=== PATIENT | female | born 1985 ===

== ENCOUNTER 2017-09-01 22:25 | Emergency (ER) | payer MEDICAID ==
[2017-09-01 22:42] VITALS: RESP 14; TEMP 97.3; O2SAT 99
--- NOTE | 2017-09-01 23:07 | C.PDOC ---
History Of Present Illness 32 year old female presents to the ER with a complaint of upper lip swelling and a rash to the bilateral arms that began 2 hours ago [place] being [place] the park. Denies difficulty breathing or difficulty swallowing. Time Seen by Provider: 09/01/17 22:45 Chief Complaint (Nursing): Allergic Reaction History Per: Patient History/Exam Limitations: no limitations Onset/Duration Of Symptoms: Hrs Current Symptoms Are (Timing): Still Present Associated Symptoms: Skin Rash, Swelling (Upper lip) Home/EMS Treatment: None Recent travel outside of the [place]: No Past Medical History Reviewed: Historical Data, Nursing Documentation, Vital Signs Vital Signs: Last Vital Signs Temp 97.3 F L 09/01/17 22:39 Pulse 70 09/01/17 23:15 Resp 14 09/01/17 23:15 BP 118/70 09/01/17 23:15 Pulse Ox 99 09/02/17 00:21 Surgical History: Cholecystectomy Family History: States: Unknown Family Hx - Social History Hx Alcohol Use: No Hx Substance Use: No - Immunization History Hx Tetanus Toxoid Vaccination: No Hx Influenza Vaccination: No Hx Pneumococcal Vaccination: No Review Of Systems ENT: Positive for: Other (Upper lip swelling). Negative for: Mouth Swelling, Throat Swelling Skin: Positive for: Rash (Bilateral arms) Physical Exam - Physical Exam Appears: Non-toxic, No Acute Distress Skin: Warm, Dry, Rash (Scattered macules to anterior bialteral forearms) Head: Atraumatic, Normacephalic Eye(s): bilateral: Normal Inspection, PERRL Oral Mucosa: Moist, No Drooling, No Other (Swelling) Tongue: Normal Appearing, No Swelling Lips: Swelling (Left upper) Throat: No Erythema, No Exudate, No Drooling, No Other (Swelling) Neck: Normal, Supple Chest: Symmetrical, No Tenderness Cardiovascular: Rhythm Regular Respiratory: Normal Breath Sounds, No Accessory Muscle Use, No Stridor, No Wheezing Neurological/Psych: Oriented x3, Normal Speech Gait: Steady ED Course And Treatment O2 Sat by Pulse Oximetry: 99 (Room air) Pulse Ox Interpretation: Normal Progress Note: Benadryl and prednisone administered. Patient reports improvement of lip swelling and rash, she is resting comfortably in the ER in no acute distress, vitals are stable; will discharge home with instructions to follow up with PMD or return if symptoms worsen. Disposition Counseled Patient/Family Regarding: Diagnosis, Need For Followup - Disposition Disposition: HOME/ ROUTINE Disposition Time: 23:05 Condition: STABLE Additional Instructions: Take all meds as prescribed Follow up with PMD Return to ER if tongue swelling, difficulty breathing or worse Prescriptions: Cetirizine HCl [Zyrtec] 10 mg PO DAILY #14 capsule DiphenhydrAMINE [Benadryl] 50 mg PO Q6H #20 cap predniSONE [Prednisone] 40 mg PO DAILY #8 tab Instructions: Seasonal Allergies (DC) Forms: [employer] (Swedish), Work Excuse - Clinical Impression Clinical Impression: Allergic reaction - PA / [address] [employer] / Resident Statement MD/DO has reviewed & agrees with the documentation as recorded. - Scribe Statement The provider has reviewed the documentation as recorded by the Scriblaura Sun All medical record entries made by the Camdeniblaura were at my direction and personally dictated by me. I have reviewed the chart and agree that the record accurately reflects my personal performance of the history, physical exam, medical decision making, and the department course for this patient. I have also personally directed, reviewed, and agree with the discharge instructions and disposition.
[2017-09-01 23:16] VITALS: BP 118/70; PULSE 70
== END 2017-09-01 23:16 | disposition home or self-care (01) ==
LOC: C.ER 22:25
DX: T78.49XA Other allergy, initial encounter (principal); X58.XXXA Exposure to other specified factors, initial encounter

== ENCOUNTER 2017-12-05 16:21 | Emergency (ER) | payer MEDICAID ==
[2017-12-05 16:32] VITALS: RESP 18
[2017-12-05] MEDS ORDERED: Sodium Chloride 0.9% 1,000 ML IV ONE (17:33)
[2017-12-05 17:51] LABS: BASO % 0.1 % (0.0-2.0); HEMOGLOBIN 12.6 g/dL (11.0-16.0); LYMPH % 17.3 % (20.0-40.0); MEAN CELL VOLUME 81.6 fL (81.0-99.0); MEAN CORPUSCULAR HEMOGLOBIN 26.4 pg (27.0-31.0); MEAN CORPUSCULAR HGB CONC 32.4 g/dL (33.0-37.0); MEAN PLATELET VOLUME 8.9 fL (7.2-11.7); MONO # 0.4 K/uL (0.0-0.8); MONO % 7.2 % (0.0-10.0); NEUT # 4.5 K/uL (1.8-7.0); NEUT % 75.4 % (50.0-75.0); RBC 4.75 Mil/uL (3.80-5.20); RED CELL DISTRIBUTION WIDTH 16.7 % (11.5-14.5)
[2017-12-05] MEDS ORDERED: Sodium Chloride 0.9% 1,000 ML ONE (17:52)
[2017-12-05 17:55] LABS: SQUAMOUS EPITHIAL 3 /hpf (0-5); URINE BILIRUBIN NEGATIVE (NEGATIVE); URINE BLOOD NEGATIVE (NEGATIVE); URINE CLARITY Clear (Clear); URINE COLOR Amber (YELLOW); URINE GLUCOSE (UA) NORMAL (Normal); URINE LEUKOCYTE ESTERASE NEG Leu/uL (Negative); URINE PROTEIN NEGATIVE (NEGATIVE); URINE UROBILINOGEN NORMAL mg/dL (0.2-1.0)
[2017-12-05 17:57] VITALS: TEMP 98.5
[2017-12-05 18:03] LABS: ALB/GLOB RATIO 1.3 (1.0-2.1); ALBUMIN 4.2 g/dL (3.5-5.0); ALT/SGPT 56 U/L (9-52); AST/SGOT 52 U/L (14-36); BLOOD UREA NITROGEN 10 mg/dL (7-17); CALCIUM 8.8 mg/dl (8.6-10.4); GFR AFRICAN-AMERICAN > 60; GFR NON-AFRICAN AMERICAN > 60; LIPASE 39 U/L (23-300)
[2017-12-05] MEDS ORDERED: Iohexol 350mg/ml 100 ML ONE (18:31)
--- NOTE | 2017-12-05 18:41 | C.PDOC ---
History Of Present Illness 32 year old female presents to the ER with a complaint of diffuse crampy abdominal pain for the past 4 days. Patient recently returned from the [place] today. Denies nausea, vomiting, or diarrhea. Time Seen by Provider: 12/05/17 17:12 Chief Complaint (Nursing): Abdominal Pain History Per: Patient History/Exam Limitations: no limitations Onset/Duration Of Symptoms: Days Current Symptoms Are (Timing): Still Present Location Of Pain/Discomfort: Diffuse Quality Of Discomfort: Cramping Associated Symptoms: denies: Nausea, Vomiting, Diarrhea Exacerbating Factors: None Alleviating Factors: None Recent travel outside of the [place]: No Abnormal Vaginal Bleeding: No Past Medical History Reviewed: Historical Data, Nursing Documentation, Vital Signs Vital Signs: Last Vital Signs Temp 98.5 F 12/05/17 17:57 Pulse 82 12/05/17 17:57 Resp 18 12/05/17 17:57 BP 107/73 12/05/17 17:57 Pulse Ox 100 12/05/17 18:52 Surgical History: Cholecystectomy Family History: States: Unknown Family Hx - Social History Hx Alcohol Use: Yes Hx Substance Use: No - Immunization History Hx Tetanus Toxoid Vaccination: No Hx Influenza Vaccination: No Hx Pneumococcal Vaccination: No Review Of Systems Except As Marked, All Systems Reviewed And Found Negative. Gastrointestinal: Positive for: Abdominal Pain Physical Exam - Physical Exam Appears: Non-toxic Skin: Normal Color, Warm, Dry Head: Atraumatic, Normacephalic Eye(s): bilateral: Normal Inspection Oral Mucosa: Moist Neck: Normal, Supple Chest: Symmetrical, No Tenderness Cardiovascular: Rhythm Regular Respiratory: Normal Breath Sounds, No Rales, No Rhonchi, No Wheezing Gastrointestinal/Abdominal: Soft ((+) diffuse tenderness, no guarding, no rebound ), Tenderness Back: No CVA Tenderness Neurological/Psych: Oriented x3, Normal Speech ED Course And Treatment - Laboratory Results Result Diagrams: 12/05/17 17:43 12/05/17 17:43 O2 Sat by Pulse Oximetry: 100 (Room air) Pulse Ox Interpretation: Normal Medical Decision Making Medical Decision Making: Plan: * CT abd/pel * Blood work * Urinalysis * Pepcid * Toradol * IV fluids Patient will be signed out at [address] Singleton pending CT. Disposition - Disposition Disposition Time: 19:00 Condition: STABLE Forms: [employer] (Slovenian) - Clinical Impression Clinical Impression: Abdominal pain - Scribe Statement The provider has reviewed the documentation as recorded by the Scribe Raymundo Sun All medical record entries made by the Scribe were at my direction and personally dictated by me. I have reviewed the chart and agree that the record accurately reflects my personal performance of the history, physical exam, medical decision making, and the department course for this patient. I have also personally directed, reviewed, and agree with the discharge instructions and disposition. Physician Patient Turnover Patient Signed Over To: Mario Singleton Handoff Comments: Pending CT, dispo.
[2017-12-05 20:48] VITALS: BP 122/81; PULSE 77; O2SAT 99
--- NOTE | 2017-12-06 08:25 | CT ---
Date of service: 12/05/2017 PROCEDURE: CT Abdomen and Pelvis with intravenous contrast HISTORY: Abdominal pain COMPARISON: None. TECHNIQUE: Multiple contiguous axial images were performed through the abdomen and pelvis with the use of intravenous contrast. Subsequently, sagittal and coronal reformatted images were. Radiation dose: Total exam DLP = 964 mGy-cm. This CT exam was performed using one or more of the following dose reduction techniques: Automated exposure control, adjustment of the mA and/or kV according to patient size, and/or use of iterative reconstruction technique. FINDINGS: LOWER THORAX: Unremarkable. LIVER: Fatty infiltration of the liver. GALLBLADDER AND BILE DUCTS: Cholecystectomy. PANCREAS: Unremarkable. No gross lesion or ductal dilatation. SPLEEN: Unremarkable. ADRENALS: Unremarkable. No mass. KIDNEYS AND URETERS: Unremarkable. No hydronephrosis. No solid mass. VASCULATURE: Unremarkable. No aortic aneurysm. BOWEL: Fluid-filled loops of large bowel which may represent diarrheal illness. Distended loops of small bowel in the mid to lower abdomen with some mild wall enhancement. Some free fluid adjacent to the bowel loops in the right lower abdomen. This would be concerning for possible enteritis. Clinical correlation. APPENDIX: Unremarkable. Normal appendix. PERITONEUM: Fluid noted within the pelvis . LYMPH NODES: Sub centimeter right lower quadrant mesenteric lymph nodes. BLADDER: Unremarkable. REPRODUCTIVE: Unremarkable. BONES: No acute fracture. OTHER FINDINGS: Bilateral breast implants. IMPRESSION: Distended loops of small bowel in the mid to lower abdomen with some mild wall enhancement. Some free fluid adjacent to the bowel loops in the right lower abdomen. This would be concerning for possible enteritis. Clinical correlation. Fluid-filled loops of large bowel which may represent diarrheal illness. Additional findings as above. These findings were preliminarily reported at 7:54 p.m. on 12/05/[address] Imani Parmar from [employer].
== END 2017-12-05 20:48 | disposition home or self-care (01) ==
LOC: C.ER 16:21
DX: R10.9 Unspecified abdominal pain (principal)
CPT/HCPCS: 74177; 80053; 81001; 83690; 85025; 96361; 96374; 96375; 99285; J1885; J7030; Q9967

== ENCOUNTER 2018-06-14 08:36 | Outpatient (CLI) | payer MEDICAID | END 2018-06-14 08:37 | disposition home or self-care (01) | LOC: C.VASC 08:36 | DX: I87.2 Venous insufficiency (chronic) (peripheral) (principal) ==